=== PATIENT | male | born 1965 | race Two or more races ===

== ENCOUNTER 2022-09-16 18:07 | Emergency (ER) | payer OTHER ==
[~2022-09-16] VITALS: Ht 182.9 cm; Wt 102.1 kg
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
--- NOTE | 2022-09-16 18:18 | NUR ---
CALLED [facility] [phone] REHABILITATION NURSE 483 INCIDENT #[id number]
--- NOTE | 2022-09-16 18:21 | NUR ---
SECURITY AT BEDSIDE FOR WANDING
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
[2022-09-16] MEDS ORDERED: LIDOCAINE 1%-EPI 1:100,000 20 ML VIAL TP ONE (19:30)
[2022-09-16] MEDS ORDERED: LIDOCAINE 1%-EPI 1:100,000 20 ML VIAL ONE (19:39)
[2022-09-16] MEDS: TDAP [DIPH/PERTUSSIS/TET] 0.5 ML VIAL IM ONE ×2 (19:40→20:03)
[2022-09-16] MEDS ORDERED: TDAP [DIPH/PERTUSSIS/TET] 0.5 ML VIAL IM ONE (19:56)
[2022-09-16 21:40] VITALS: BP 128/72
--- NOTE | 2022-09-16 21:40 | NUR ---
Patient discharged to home in stable condition. Written and verbal after care instructions given. Patient verbalizes understanding of instruction. Pt ambulatory with a steady gait
== END 2022-09-16 21:41 | disposition home or self-care (01) ==
LOC: ER 18:35
DX: S61.412A Laceration without foreign body of left hand, initial encounter (principal); F17.200 Nicotine dependence, unspecified, uncomplicated; Z60.2 Problems related to living alone; Y04.2XXA Assault by strike against or bumped into by another person, initial encounter; Y93.89 Activity, other specified; Y92.811 Bus as the place of occurrence of the external cause; Y99.8 Other external cause status
CPT/HCPCS: 99283; 12002; 90471; 90715; 73130; A6403; J3490